=== PATIENT | female | born 1970 | race Caucasian/White ===

== ENCOUNTER → 2016-08-21 | Outpatient (CLI) | payer OTHER ==
[~2016-08-21] MED LIST: ALLO100T PO; ASPI-983 PO; BPR150TCR PO; CARV6.25 PO; CHOL200059 PO; CYANOCOBALAMIN; CYCL10TA9 PO; CYMBALTA 30 MG PO; DULO30CA3 PO; DULO60CA6 PO; ESTR1PAT81 TD; ESTR1PAT92 TD; FENO134C PO; FLUC100T6 PO; FLUCONAZOLE 100 MG PO; GEMF600T PO; GEMFIBROZIL 600 MG PO; INSU100V6 SQ; LIRA0.6P SQ; METF-380 PO; METF1000 PO; METFORMIN 1000MG PO; METO-270 PO; METO-272 PO; METOPROLOL ER 25MG PO; MTF500T PO; MULT-55 PO; NAPH15DR8 OU; NAPR-243 PO; NATURE THROID PO; NPPH15OP OU; PIOG30TA25 PO; ROPI0.25 PO; TESTOSTERONE; THROID PO; THYR130T5 PO; TOPI25TA2 PO; TRAM50TA2 PO; TRAMADOL 50MG PO; VITAMIN D3 PO
--- OUTSIDE RECORDS SUMMARY | 2016-08-21 15:06 | XMS REPORT | Continuity of Care Document ---
Author Author [facility] Organization [facility] Address Unknown Phone Unavailable Care Team Providers Care Disaster Response Director Name Role Phone Jai Moraia PCP [phone] Source Comments Some departments are not documenting in the electronic medical record. If you do not see the information that you expected, contact Release of Information in the Health Information Management department at [phone] for further assistance in locating additional records.[facility] Active Allergies and Adverse Reactions Allergen Noted Date Severity Reactions Comments Contrast Dye Iv, Iodine 12/15/2013 HIVES Containing Current Medications Prescription Sig. Disp. Refills Start End Date Status Date metFORMIN (GLUCOPHAGE) Take 500 mg by mouth Active 500 mg tablet twice daily with meals. metformin-ER(+) Take 1,000 mg by mouth Active (FORTAMET) 1,000 mg daily with dinner. tablet THYROID,PORK Take 2 mg by mouth daily Active (NATURE-THROID PO) before breakfast. buPROPion SR(+) Take 150 mg by mouth Active (WELLBUTRIN SR) 150 mg daily with dinner. tablet DULoxetine DR (CYMBALTA) Take 60 mg by mouth Active 60 mg capsule daily. estradiol (ESTRADIOL Apply 1 Patch to top of Active TRANSDERMAL PATCH) 0.05 skin as directed every 7 mg/24 hr patch days. fenofibrate micronized Take 160 mg by mouth Active (LOFIBRA) 134 mg capsule daily with dinner. insulin glargine (LANTUS Inject 30 Units into Active SOLOSTAR) 100 unit/mL (3 area(s) as directed at mL) injection PEN bedtime daily. liraglutide(+) (VICTOZA Inject 1.8 mg into Active 2-SHAYAN) 0.6 mg/0.1 mL (18 area(s) as directed mg/3 mL) pnij daily. metoprolol XL (TOPROL XL) Take 50 mg by mouth Active 50 mg tablet daily. bi-est Apply 1 g to affected Active 50/85-yfuypxzhlfxn-pzehyx area twice daily. *To terone 1.25-5-0.125 mg/g inner thigh or upper topical cream inner arm carvedilol (COREG) 12.5 Take 12.5 mg by mouth Active mg tablet daily. Take with food. losartan (COZAAR) 25 mg Take 25 mg by mouth Active tablet daily. coenzyme Q10(+) 100 mg Take 200 mg by mouth Active cap daily. omeprazole DR(+) Take 1 Cap by mouth daily 30 Cap 1 07/29/20 Active (PRILOSEC) 20 mg capsule before breakfast. 16 fluconazole (DIFLUCAN) 200 mg on day 1 followed 15 Tab 0 08/09/20 Active 100 mg tablet by 100 mg for 13 days. 16 Total of 14 day course. cyclobenzaprine Take 10 mg by mouth daily 08/06/20 Discontin (FLEXERIL) 10 mg tablet with dinner. 16 ued Active Problems Problem Noted Date Fibromyalgia 12/15/2013 DM (diabetes mellitus) (HCC) 12/15/2013 Hypothyroid 12/15/2013 HTN (hypertension) 12/15/2013 Hypercholesteremia 12/15/2013 Most Recent Encounters Date Type Specialty Providers Description 08/15/2016 Telephone Hepatology Sandra Agustin MD 08/14/2016 Telephone Hepatology Sandra Agustin MD 08/08/2016 Result Letter Gastroenterology Yuliana Sun, Jordan esophagitis (HCC) VAL (Primary Dx) 08/06/2016 [facility] Yuliana Sun, Dysphagia Encounter VAL 08/06/2016 Telephone Transplant Surgery Mushtaq Pereira, pc network technician 08/06/2016 Endo Rslt Enc Gastroenterology Franklin Loo MD 08/06/2016 Surgery Yuliana Sun, ESOPHAGOGASTRODUODENOSCOP VAL Y 08/05/2016 Anesthesia Riccardo Cruz CRNA Event 08/01/2016 Telephone Gastroenterology Yuliana Sun, Results VAL 07/29/2016 [facility] Yuliana Sun, Unspecified cirrhosis of Encounter VAL liver 07/29/2016 Hospital Radiology Yuliana Sun, Encounter VAL 07/29/2016 Office Visit Gastroenterology Yuliana Sun, Cirrhosis of liver VAL without ascites, unspecified hepatic cirrhosis type (HCC) (Primary Dx); Gastroesophageal reflux disease, esophagitis presence not specified 07/29/2016 Prep for Case GastroenterYuliana Ramires MBBS Social History Tobacco Use Types Packs/Day Years Used Date Never Smoker Alcohol Use Drinks/Week oz/Week Comments No Last Filed Vital Signs Vital Sign Reading Time Taken Blood Pressure 126/76 08/06/2016 9:07 AM TUTOR COORDINATOR Pulse 83 08/06/2016 9:07 AM TUTOR COORDINATOR Temperature 36.7 C (98.1 F) 08/06/2016 8:55 AM TUTOR COORDINATOR Respiratory Rate 14 12/15/2013 3:31 PM CDT Height 1.778 m (5' 10") 08/06/2016 8:01 AM TUTOR COORDINATOR Weight 105.688 kg (233 lb) 08/06/2016 8:01 AM TUTOR COORDINATOR Body Mass Index 33.43 08/06/2016 8:01 AM TUTOR COORDINATOR Oxygen Saturation 100% 08/06/2016 9:07 AM TUTOR COORDINATOR Plan of Care Date Type Specialty Providers Description 12/10/2016 Appointment Hepatology Sandra Agustin MD [address] [place] [address] [phone] (Fax) 12/16/2016 Appointment Gastroenterology Yuliana Sun MBBS [address] [place] [address] [phone] (Fax) Health Maintenance Due Date Last Done Comments Physical (Comprehensive) 1978 Exam Pertussis Vaccine 1982 Tetanus Vaccine 1988 Cervical Cancer Screening 1992 Breast Cancer Screening 2011 Influenza Vaccine 04/11/2016 Procedures from Last 3 Months Procedure Name Priority Date/Time Associated Diagnosis Comments TELEMETRY STRIPS-SCAN 08/07/2016 Results for this 12:17 PM TUTOR COORDINATOR procedure are in the results section. ESOPHAGOGASTRODUODENOSCOP 08/06/2016 Dysphagia Y BIOPSY 8:35 AM TUTOR COORDINATOR ESOPHAGOGASTRODUODENOSCOP 08/06/2016 Dysphagia Y 8:35 AM TUTOR COORDINATOR Results from Last 3 Months TELEMETRY STRIPS-SCAN (08/07/2016 12:17 PM) Narrative Ordered by an unspecified provider. NON-AUTO SLIP COVER INSTALLER CYTOLOGY (BODY FLUIDS/TISSUE) (08/06/2016 12:38 PM) Component Value Range Cytology [facility] [email or web address] Maddy Montenegro MD, Director Cytopathology Department of Pathology and Laboratory Medicine [address] [place] [id number] Office: [phone] CYTOLOGY REPORT NAME: HOWARD NEWBY CYTOLOGY #: [id number] MR #: [id number] ALT ID #: [id number] #: [id number] LOCATION: DATE OF PROCEDURE: 08/06/2016 12:38 AGE: 46 SEX: F DATE RECEIVED: 08/06/2016 : 1970 TIME RECEIVED: 12:38 PHYSICIAN: YULIANA SUN MD DATE OF REPORT: 08/07/2016 COPY TO: DATE OF PRINTIN08/07/2016 HISTORY: Date of Last Menstrual Period: None Given Menstrual History: None Given Contraceptive History: None Given Cancer History: None Given Infection History: None Given Treatment History: None Given Other Clinical Conditions: None Given CLINICAL DIAGNOSIS: 46 year old woman with history of GERD. MATERIAL RECEIVED: A: Esophageal Brushing ################################################## ###################### Final Diagnosis: A. Esophageal Brushing: Negative for malignant cells. Fungal organisms compatible with jordan are noted. Attestation: By this signature, I attest that I have personally formulated the final interpretation expressed in this report and that the above diagnosis is based upon my examination of the slides and/or other material indicated in this report. af/08/07/2016 +++Electronically Signed Out By Cynthia Reyes MD PhD, Attending Physician+++ Cervical cytology is a SCREENING TEST primarily for detecting cancers and precancerous lesions. This screening test has a well documented false negative rate. Your patient's pap test results should be interpreted in conjunction with history and clinical findings. Reported using [employer] terminology. ################################################## ###################### SURGICAL PATHOLOGY (08/06/2016 9:36 AM) Component Value Range PATHOLOGY REPORT [facility] [email or web address] Maddy Montenegro MD, PhD, Director of Anatomic Pathology Department of Pathology and Laboratory Medicine [address] [place] [phone] Surgical Pathology Office: [phone] SURGICAL PATHOLOGY REPORT NAME: HOWARD NEWBY SURG PATH #: [id number] MR #: [id number] SPECIMEN CLASS: SR BILLING #: [id number] ALT ID #: LOCATION: [facility] DATE OF PROCEDURE: 08/06/2016 AGE: 46 SEX: F DATE RECEIVED: 08/06/2016 : 1970 TIME RECEIVED: 09:36 PHYSICIAN: YULIANA SUN MD DATE OF REPORT: 08/08/2016 COPY TO: DATE OF PRINTIN08/08/2016 ################################################## ###################### Final Diagnosis: A. Squamous mucosa, "distal esophageal", biopsy: Mild nonspecific acute and chronic inflammation. GMS stain is negative for fungal organisms. B. Squamous mucosa, "proximal esophageal", biopsy: Mild nonspecific acute and chronic inflammation. GMS stain is negative for fungal organisms. Attestation: By this signature, I attest that I have personally formulated the final interpretation expressed in this report and that the above diagnosis is based upon my examination of the slides and/or other material indicated in this report. +++Electronically Signed Out By+++ [facility]/08/06/2016 Interpreted by: Tavon Clark MD, Attending Physician Phill Moreno MD Resident 08/08/2016 ################################################## ###################### Material Received: A: distal esophageal biopsy B: proximal esophageal biopsy History: 46-year-old female with a history of dysphagia. Gross Description: A. Received in formalin labeled "distal esophageal BX" is a 0.3 x 0.1 x 0.1 cm aggregate of miguel-brown soft tissue fragments. The specimen is entirely submitted in cassette A1. (tn) B. Received in formalin labeled "proximal esophageal BX" is a 0.4 x 0.1 x 0.1 cm aggregate of miguel-brown soft tissue fragments. The specimen is entirely submitted in cassette B1. (tn) /08/06/2016 Phill Moreno MD Resident EGD (08/06/2016 8:33 AM) Component Value Range Provation Report Patient Name: Odin Lawrence Procedure Date: 08/06/2016 8:33 AM CSN: [id number] Date of : 1970 Gender: Female Attending Physician: Yuliana Sun MD Procedure: Upper GI endoscopy Indications: Dy sphagia, Esophageal reflux, Possible esophageal varices seen on EGD in 2013. Providers: Yuliana Sun MD (Doctor), Reid Hart (Fellow), Eboni Banegas (Nurse), Tim Melendez, Superintendent Laundry (Superintendent Laundry) Referring Physician: Franklin Loo MD Medications: Mo nitored Anesthesia Care Complications: No immediate complications. Procedure: Pre-Anesthesia Assessment: - Prior to the procedure, a History and Physical was performed, and patient medications and allergies were reviewed. The patient's tolerance of previous anesthesia was also reviewed. The risks and benefits of the procedure and the sedation options and risks were discussed with the patient. All questions were answered, and informed consent was obtained. Prior Anticoagulants: The patient has taken no previous anticoagulant or antiplatelet agents. ASA Grade Assessment: II - A patient with mild systemic disease. After reviewing the risks and benefits, the patient was deemed in satisfactory condition to undergo the procedure. After obtaining informed consent, the endoscope was passed under direct vision. Throughout the procedure, the patient's blood pressure, pulse, and oxygen saturations were monitored continuously. The Endoscope was introduced through the mouth, and advanced to the second part of duodenum. The upper GI endoscopy was accomplished without difficulty. The patient tolerated the procedure well. Findings: Esophagogastric landmarks were identified: the gastroesophageal junction was found at 38 cm from the incisors. LA Grade B (one or more mucosal breaks greater than 5 mm, not extending between the tops of two mucosal folds) esophagitis with no bleeding was found at the gastroesophageal junction. There is no endoscopic evidence of varices in the lower third of the esophagus. Biopsies were obtained from the proximal and distal esophagus with cold forceps for histology of suspected eosinophilic esophagitis. White plaques were seen covering the lower third of esophagus. Brushings were taken to rule out jordan. The entire examined stomach was normal. A small, 2 cm sliding hernia was present. The examined duodenum was normal. Impression: - Esophagogastric landmarks identified. - LA Grade B reflux esophagitis. - Esophageal mucosal changes suspicious for eosinophilic esophagitis. White plaques were seen covering the lower third of esophagus. Brushings were taken to rule out jordan. Biopsied. - Normal stomach. A small, 2 cm sliding hernia was present. - Normal examined duodenum. Estimated Blood Loss: Estimated blood loss: none. Recommendation: - Patient has a contact number available for emergencies. The signs and symptoms of potential delayed complications were discussed with the patient. Return to normal activities tomorrow. Written discharge instructions were provided to the patient. - Resume previous diet. - Continue present medications. - Await pathology results. - Return to referring physician. - Follow an antireflux regimen daily. Scope In: 8:40:00 AM Scope Out: 8:50:42 AM Total Procedure Duration Time 0 hours 10 minutes 42 seconds Procedure Code(s): --- Professional --- 81096, Esophagogastroduodenoscopy, flexible, transoral; with biopsy, single or multiple Diagnosis Code(s): --- Professional --- K21.0, Gastro-esophageal reflux disease with esophagitis R13.10, Dysphagia, unspecified CPT copyright 2015 [employer]. All rights reserved. The codes documented in this report are preliminary and upon bolt machine operator review may be revised to meet current compliance requirements. Attending Participation: I was present and participated during the entire procedure, including non-barlow portions. MD Yuliana Bradley MD 08/06/2016 9:04:03 AM The attending physician has electronically signed and finalized this document. Reid Hart, Number of Addenda: 0 Note Initiated On: 08/06/2016 8:33 AM POC GLUCOSE (08/06/2016 7:52 AM) Component Value Range Glucose, POC 285 (H) 70-100 MG/DL COMPREHENSIVE METABOLIC PANEL (07/29/2016 5:40 PM) Component Value Range Sodium 134 (L) 137-147 MMOL/L Potassium 3.8 3.5-5.1 MMOL/L Chloride 96 (L) 98-110 MMOL/L Glucose 305 (H) 70-100 MG/DL Blood Urea Nitrogen 14 7-25 MG/DL Creatinine 0.91 0.4-1.00 MG/DL Calcium 9.8 8.5-10.6 MG/DL Total Protein 7.5 6.0-8.0 G/DL Total Bilirubin 0.3 0.3-1.2 MG/DL Albumin 4.4 3.5-5.0 G/DL Alk Phosphatase 45 25-110 U/L AST (SGOT) 14 7-40 U/L CO2 28 21-30 MMOL/L ALT (SGPT) 19 7-56 U/L Anion Gap 10 3-12 eGFR Non >60Comment: >60 mL/min The eGFR is not validated for use in drug dosing adjustments. Continue to use estimated creatinine clearance per dosing reference text. Please contact the Clinical Pharmacist for questions. eGFR >60Comment: >60 mL/min The eGFR is not validated for use in drug dosing adjustments. Continue to use estimated creatinine clearance per dosing reference text. Please contact the Clinical Pharmacist for questions. Specimen Blood CBC AND DIFF (07/29/2016 5:40 PM) Component Value Range White Blood Cells 9.2 4.5-11.0 K/UL RBC 4.49 4.0-5.0 M/UL Hemoglobin 13.1 12.0-15.0 GM/DL Hematocrit 39.8 36-45 % MCV 88.5 80-100 FL MCH 29.3 26-34 PG MCHC 33.1 32.0-36.0 G/DL RDW 13.6 11-15 % Platelet Count 385 150-400 K/UL MPV 8.1 7-11 FL Neutrophils 53 41-77 % Lymphocytes 39 24-44 % Monocytes 5 4-12 % Eosinophils 3 0-5 % Basophils 0 0-2 % Absolute Neutrophil Count 4.90 1.8-7.0 K/UL Absolute Lymph Count 3.60 1.0-4.8 K/UL Absolute Monocyte Count 0.50 0-0.80 K/UL Absolute Eosinophil Count 0.30 0-0.45 K/UL Absolute Basophil Count 0.00 0-0.20 K/UL Specimen Blood US ABDOMEN COMPLETE (07/29/2016 5:26 PM) Impressions Mildly heterogeneous liver without focal lesion. Approved by Alex Taylor M.D. on 07/30/2016 10:08 AM By my electronic signature, I attest that I have personally reviewed the images for this examination and formulated the interpretations and opinions expressed in this report Finalized by Julio Link M.D. on 07/30/2016 6:14 PM. Dictated by Alex Taylor M.D. on 07/30/2016 7:55 AM. Narrative Complete abdominal ultrasound: Clinical Indication: Cirrhosis, unspecified hepatic cirrhosis, diabetes, fibromyalgia, hypertension Technique: Multiple real-time grayscale sonographic images were obtained of the abdomen. Additional color Doppler images were obtained. Findings: The gallbladder is normal in size and configuration. The common duct measures 0.4 cm. The liver is mildly heterogeneous and measures 16.2 cm in length. No focal lesions identified. The visualized pancreas is unremarkable. The right kidney measures 4.5 x 5.9 cm. The left kidney measures 11.4 x 6.1 cm. No hydronephrosis or nephrolithiasis is identified. The urinary bladder is unremarkable. The spleen measures 12.4 cm without focal lesions. No abdominal or pelvic ascites is identified. The visualized aorta is unremarkable.The visualized portion of the upper IVC is unremarkable. Procedure Note Interface, Radiant Results - Tue Jul 30, 2016 6:17 PM TUTOR COORDINATOR Complete abdominal ultrasound: Clinical Indication: Cirrhosis, unspecified hepatic cirrhosis, diabetes, fibromyalgia, hypertension Technique: Multiple real-time grayscale sonographic images were obtained of the abdomen. Additional color Doppler images were obtained. Findings: The gallbladder is normal in size and configuration. The common duct measures 0.4 cm. The liver is mildly heterogeneous and measures 16.2 cm in length. No focal lesions identified. The visualized pancreas is unremarkable. The right kidney measures 4.5 x 5.9 cm. The left kidney measures 11.4 x 6.1 cm. No hydronephrosis or nephrolithiasis is identified. The urinary bladder is unremarkable. The spleen measures 12.4 cm without focal lesions. No abdominal or pelvic ascites is identified. The visualized aorta is unremarkable. The visualized portion of the upper IVC is unremarkable. IMPRESSION Mildly heterogeneous liver without focal lesion. Approved by Alex Taylor M.D. on 07/30/2016 10:08 AM By my electronic signature, I attest that I have personally reviewed the images for this examination and formulated the interpretations and opinions expressed in this report Finalized by Julio Link M.D. on 07/30/2016 6:14 PM. Dictated by Alex Taylor M.D. on 07/30/2016 7:55 AM.
--- NOTE | 2016-08-22 08:41 | ECHOCARDIOGRAPHY REPORT ---
PROCEDURE PHYSICIAN: PARUL COLE DATE OF PROCEDURE: 08/21/2016 TWO DIMENSIONAL ECHOCARDIOGRAM REPORT PRIMARY PHYSICIAN: OTHER PHYSICIAN: REFERRING PHYSICIAN: Dr. Mora ORDERING PHYSICIAN: INDICATION FOR THE PROCEDURE: Bundle branch block. MEASUREMENTS DERIVED VALUES LV DIAMETER (LAX) NORMALS NORMALS Diastolic 5.2 (3.6-5.2) Eject. Fract. 45% (60%+/-6%) Systolic (2.3-3.9) Diastolic Vol. % Shortening (0.22-0.42) Systolic Vol. Aortic Root IVS THICKNESS Diastolic 1 (0.6-1.1) LVPW THICKNESS Diastolic 1 (0.6-1.1) LA DIAMETER Systolic 4.4 (2.1-3.7) FINDINGS: 1. Technical quality is good. 2. The left ventricle is normal in size with hypokinesia involving the anterior wall, anterior septum. Systolic function is reduced. Estimated ejection fraction 45%. 3. The left atrium is mildly dilated. No clot or thrombus were seen within the left atrium. 4. The right atrium and right ventricle are normal in size. No clot or thrombus were seen within the right side. 5. Mitral valve is normal in morphology with mild mitral regurgitation noted by color Doppler flow. No mitral valve prolapse. No mitral valve stenosis. 6. Aortic valve is trileaflet with normal opening and closing pattern. No significant aortic stenosis or regurgitation was seen. 7. Tricuspid valve is normal in morphology with mild tricuspid regurgitation noted by color Doppler flow. Doppler across tricuspid valve estimated pulmonary artery pressure of 22+ right atrial pressure. 8. Pulmonic valve is functioning normally. 9. No pericardial effusion. IN CONCLUSION: 1. Normal left ventricular size with hypokinesia involving the anterior wall, anterior septum. Systolic function is mildly reduced. Estimated ejection fraction 45%. No change compared to the study of 2016. 2. Mildly dilated left atrium. 3. Mild mitral and tricuspid regurgitation. 4. Estimated pulmonary artery pressure of 30 mmHg. Job ID: [id number] Dictated Date: 08/21/2016 15:56:28 Intelligence Applications Date: 08/22/2016 08:38:10 / hi
== END ==
LOC: CARD 15:02
PROVIDERS: ATTEND Physician Assistant
DX: I44.7 Left bundle-branch block, unspecified (principal); I50.22 Chronic systolic (congestive) heart failure; E78.2 Mixed hyperlipidemia; I10 Essential (primary) hypertension
CPT/HCPCS: 93306

== ENCOUNTER → 2016-09-26 | Outpatient (CLI) | payer OTHER ==
--- OUTSIDE RECORDS SUMMARY | 2016-09-26 10:52 | XMS REPORT | Continuity of Care Document ---
Author Author [facility] Organization [facility] Address Unknown Phone Unavailable Care Team Providers Care Egg Worker Name Role Phone Jai Moraia PCP [phone] Source Comments Some departments are not documenting in the electronic medical record. If you do not see the information that you expected, contact Release of Information in the Health Information Management department at [phone] for further assistance in locating additional records.[facility] Active Allergies and Adverse Reactions Allergen Noted [...] bi-est Apply 1 g to affected Active 50/49-chqnweviwkux-aylxgl area twice daily. *To terone 1.25-5-0.125 mg/g [...] days. 16 Total of 14 day course. Active Problems Problem Noted Date Fibromyalgia 12/15/2013 DM (diabetes mellitus) (HCC) 12/15/2013 Hypothyroid 12/15/2013 HTN (hypertension) 12/15/2013 Hypercholesteremia 12/15/2013 Most Recent Encounters Date Type Specialty Providers Description 09/24/2016 Refill Gastroenterology Yuliana Sun, Gastroesophageal reflux MBBS disease, esophagitis presence not specified (Primary Dx) 08/15/2016 Telephone Hepatology Sandra Agustin MD 08/14/2016 Telephone Hepatology Sandra Agustin MD 08/08/2016 Result Letter Gastroenterology Yuliana Sun, Jordan esophagitis (HCC) VAL (Primary Dx) [facility] MBIRWIN 08/06/2016 Telephone Transplant Surgery Mushtaq Pereira, production coordinator 08/06/2016 Endo Rslt Enc Gastroenterology Franklin Loo MD 08/06/2016 Surgery Yuliana Sun, ESOPHAGOGASTRODUODENOSCOP MBBS Y 08/05/2016 Anesthesia Riccardo Cruz CRNA Event 08/01/2016 Telephone Gastroenterology Yuliana Sun, Results MBBS 07/29/2016 [facility] Yuliana Sun, Unspecified cirrhosis of Encounter MBIRWIN liver (HCC) 07/29/2016 [facility] 07/29/2016 Office Visit Gastroenterology Yuliana Sun, Cirrhosis of liver VAL without ascites, unspecified hepatic cirrhosis type (HCC) (Primary Dx); Gastroesophageal reflux disease, esophagitis presence not specified 07/29/2016 Prep for Case Gastroenterology Yuliana Sun MBBS Social History Tobacco Use Types Packs/Day Years Used Date Never Smoker Alcohol Use Drinks/Week oz/Week Comments No Last Filed Vital Signs Vital Sign Reading Time Taken Blood Pressure 126/76 08/06/2016 9:07 AM CLINIC LICENSED PRACTICAL NURSE Pulse 83 08/06/2016 9:07 AM CLINIC LICENSED PRACTICAL NURSE Temperature 36.7 C (98.1 F) 08/06/2016 8:55 AM CLINIC LICENSED PRACTICAL NURSE Respiratory Rate 14 12/15/2013 3:31 PM CDT Height 1.778 m (5' 10") 08/06/2016 8:01 AM CLINIC LICENSED PRACTICAL NURSE Weight 105.688 kg (233 lb) 08/06/2016 8:01 AM CLINIC LICENSED PRACTICAL NURSE Body Mass Index 33.43 08/06/2016 8:01 AM CLINIC LICENSED PRACTICAL NURSE Oxygen Saturation 100% 08/06/2016 9:07 AM CLINIC LICENSED PRACTICAL NURSE Plan of Care Date Type Specialty Providers Description 12/10/2016 Appointment Hepatology Sandra Agustin MD [address] [place] [address] [phone] (Fax) 12/16/2016 Appointment Gastroenterology Yuliana Sun MBBS [address] [place] [address] [phone] (Fax) Health Maintenance Due Date Last Done Comments Physical (Comprehensive) 1978 Exam Pertussis Vaccine 1982 Tetanus Vaccine 1988 Cervical Cancer Screening 1992 Breast Cancer Screening 2011 Influenza Vaccine 04/11/2016 Procedures from Last 3 Months Procedure Name Priority Date/Time Associated Diagnosis Comments TELEMETRY STRIPS-SCAN 08/07/2016 Results for this 12:17 PM CLINIC LICENSED PRACTICAL NURSE procedure are in the results section. ESOPHAGOGASTRODUODENOSCOP 08/06/2016 Dysphagia Y BIOPSY 8:35 AM CLINIC LICENSED PRACTICAL NURSE ESOPHAGOGASTRODUODENOSCOP 08/06/2016 Dysphagia Y 8:35 AM CLINIC LICENSED PRACTICAL NURSE Results from Last 3 Months TELEMETRY STRIPS-SCAN (08/07/2016 12:17 PM) Narrative Ordered by an unspecified provider. NON-CATALOG SPECIALIST CYTOLOGY (BODY FLUIDS/TISSUE) (08/06/2016 12:38 PM) Component Value Range Cytology [facility] [email or web address] Maddy Montenegro MD, Director Cytopathology Department of Pathology and Laboratory Medicine [address] [place] [id number] Office: [phone] CYTOLOGY REPORT NAME: HOWARD NEWBY CYTOLOGY #: [id number] MR #: [id number] ALT ID #: BILLING #: [id number] LOCATION: DATE OF PROCEDURE: 08/06/2016 12:38 AGE: [...] with history and clinical findings. Reported using [place] [employer] terminology. ################################################## ###################### SURGICAL PATHOLOGY (08/06/2016 9:36 AM) Component Value Range PATHOLOGY REPORT [facility] [email or web address] Maddy Montenegro MD, PhD, Director of Anatomic Pathology Department of Pathology and Laboratory Medicine [address] [place] [id number] Surgical Pathology Office: [phone] SURGICAL PATHOLOGY REPORT NAME: HOWARD NEWBY SURG PATH #: [id number] MR #: [id number] SPECIMEN CLASS: SR BILLING #: [id number] ALT ID #: LOCATION: [facility] DATE OF PROCEDURE: 08/06/2016 AGE: 46 SEX: [...] in this report. +++Electronically Signed Out By+++ [facility]/08/06/2016 Interpreted by: Tavon Clark MD, Attending Physician [...] Lawrence Procedure Date: 08/06/2016 8:33 AM CSN: [id number] Date of : 1970 Gender: Female Attending Physician: Yuliana Sun MD Procedure: Upper GI endoscopy Indications: Dy sphagia, Esophageal reflux, Possible esophageal varices seen on EGD in 2013. Providers: Yuliana Sun MD (Doctor), Reid Hart (Fellow), Eboni Banegas (Nurse), Tim Melendez, C Python Developer (C Python Developer) Referring Physician: Franklin Loo MD Medications: Mo [...] 42 seconds Procedure Code(s): --- Professional --- 80125, Esophagogastroduodenoscopy, flexible, transoral; with biopsy, single or multiple Diagnosis Code(s): --- Professional --- K21.0, Gastro-esophageal reflux disease with esophagitis R13.10, Dysphagia, unspecified CPT copyright 2015 [employer]. All rights reserved. The codes documented in this report are preliminary and upon airplane pilot helper review may be revised to meet current [...] - Tue Jul 30, 2016 6:17 PM CLINIC LICENSED PRACTICAL NURSE Complete abdominal ultrasound: Clinical Indication: Cirrhosis, unspecified [...]
--- NOTE | 2016-09-26 14:25 | Diagnostic Imaging Report ---
CLINICAL INDICATION: Followup thyroid nodule. COMPARISONS: Thyroid ultrasound dated 03/16/2015. FINDINGS: THYROID NODULES: There is a hypoechoic nodule within the medial midportion of the right thyroid gland which currently measures 5 mm x 3 mm x 5 mm. This nodule is stable and previously measured 5 mm x 3 mm x 5 mm. These nodules demonstrate no significant doppler flow. THYROID GLAND: Besides the thyroid nodule, the thyroid gland has normal size, shape and echogenicity. The right lobe measures 4.3 cm x 1.4 cm x 1.4 cm and the left lobe measures 4.5 cm x 1.1 cm x 1.4 cm in their three dimensions. ISTHMUS: The isthmus is unremarkable and measures roughly 2 mm in thickness. IMPRESSION: Stable 5 mm nodule in the right thyroid gland. Otherwise, unremarkable thyroid ultrasound exam. Dictated by: Dictated on workstation # [id number]
== END ==
LOC: RAD 10:48
PROVIDERS: ATTEND Nurse Practitioner Family
DX: E04.1 Nontoxic single thyroid nodule (principal)
CPT/HCPCS: 76536

== ENCOUNTER 2017-03-15 21:00 | Outpatient (CLI) | payer BC, OTHER | END 2017-03-16 06:45 | disposition home or self-care (01) | LOC: SLEEP 21:00 | PROVIDERS: ATTEND Internal Medicine Critical Care Medicine | DX: G47.33 Obstructive sleep apnea (adult) (pediatric) (principal); I50.1 Left ventricular failure, unspecified | CPT/HCPCS: 95810 ==

== ENCOUNTER → 2018-02-16 | Outpatient (CLI) | payer BC ==
[~2018-02-16] MED LIST changes: -METF1000 PO; +METF10002 PO; -METO-270 PO; +METO-387 PO
== END ==
LOC: RAD 10:12
PROVIDERS: ATTEND Internal Medicine Cardiovascular Disease
DX: R07.9 Chest pain, unspecified (principal); I10 Essential (primary) hypertension; E78.2 Mixed hyperlipidemia; E11.9 Type 2 diabetes mellitus without complications
CPT/HCPCS: 93306

== ENCOUNTER → 2018-06-26 | Outpatient (CLI) | payer BC ==
[~2018-06-26] MED LIST changes: +METF-399 PO; -METF10002 PO
--- NOTE | 2018-06-26 19:34 | Diagnostic Imaging Report ---
PROCEDURE: US Thyroid. TECHNIQUE: Multiple real-time grayscale images were obtained of the thyroid in various projections. INDICATION: Thyroid nodule. COMPARISON: 09/26/2016, 01/15/2013. FINDINGS: The right thyroid lobe measures 4.7 x 1.5 x 1.5 cm. There is a hypoechoic circumscribed nodule in the inferior right thyroid lobe which is mildly heterogeneous. This measures 5 x 5 x 4 mm in size. There is internal vascularity. This is unchanged since the prior exam. Vascularity and echogenicity of the right thyroid lobe appears normal. The isthmus measures 2 mm in thickness and appears normal. The left thyroid lobe measures 4.0 x 1.5 x 1.1 cm. There is normal echogenicity and vascularity. No nodules are seen. IMPRESSION: 1. 5 mm right thyroid nodule, appears unchanged compared to 2013. No new nodules are seen. Dictated by: Dictated on workstation # [id number]
== END ==
LOC: RAD 16:02
PROVIDERS: ATTEND Nurse Practitioner Family
DX: E04.1 Nontoxic single thyroid nodule (principal)
CPT/HCPCS: 76536

== ENCOUNTER → 2018-06-30 | Outpatient (CLI) | payer BC ==
[~2018-06-30] MED LIST changes: +CATHETER FLUSH 10 ML SYR IV PRN; +HEParin (CENTRAL IV FLUSH) 500 UNIT/5 ML SYR ONE
== END ==
LOC: CARD 13:55
PROVIDERS: ATTEND Internal Medicine Cardiovascular Disease
DX: I44.7 Left bundle-branch block, unspecified (principal); I11.0 Hypertensive heart disease with heart failure; I50.1 Left ventricular failure, unspecified; R07.9 Chest pain, unspecified; E11.9 Type 2 diabetes mellitus without complications; I50.22 Chronic systolic (congestive) heart failure; E78.2 Mixed hyperlipidemia
CPT/HCPCS: 78472

== ENCOUNTER → 2018-07-13 | Outpatient (CLI) | payer BC ==
[~2018-07-13] MED LIST changes: -CATHETER FLUSH 10 ML SYR IV PRN; -HEParin (CENTRAL IV FLUSH) 500 UNIT/5 ML SYR ONE
--- NOTE | 2018-07-14 20:09 | Diagnostic Imaging Report ---
INDICATION: Routine screening. Comparison is made with prior mammograms from 07/12/2015 and 01/15/2013. 2-D and 3-D bilateral screening mammography was performed with computer-aided detection (CAD) system. FINDINGS: Scattered fibroglandular densities are identified bilaterally. Benign-appearing nodular densities in the outer left breast appear stable. No new mass or malignant-appearing microcalcifications are seen. The axillae are unremarkable. IMPRESSION: No mammographic features suspicious for malignancy are identified. ACR BI-RADS Category 2: Benign findings. Result letter will be mailed to the patient. Note: At least 10% of breast cancer is not imaged by mammography. Dictated by: Dictated on workstation # [id number]
== END ==
LOC: RAD 15:37
PROVIDERS: ATTEND Nurse Practitioner Family
DX: Z12.31 Encounter for screening mammogram for malignant neoplasm of breast (principal)
CPT/HCPCS: 77067

== ENCOUNTER 2019-05-14 06:34 | Outpatient (CLI) | payer BC ==
[2019-05-14] VITALS (10 sets, daily range): BP systolic 118–153; BP diastolic 80–100
[~2019-05-14] VITALS: Ht 157 cm; Wt 91.0 kg
[~2019-05-14 06:34] MED LIST changes: +NAPH15DR14 OU; -NAPH15DR8 OU
[2019-05-14] MEDS ORDERED: CATHETER FLUSH 10 ML SYR IV PRN (07:00)
[2019-05-14] MEDS ORDERED: REGADENOSON 0.4 MG/5 ML SYR (LEXISCAN) IV ONE ×2 (08:15→08:17)
[2019-05-14] MEDS ORDERED: LIDOCAINE 1% INJ 20 ML 20 ML VIAL ONE (09:52)
[2019-05-14] MEDS ORDERED: NS IV 1000 ML 1,000 ML ONE (09:52)
[2019-05-14] MEDS ORDERED: HEParin (CATH LAB) 2,000 ML IV ONE (09:53)
[2019-05-14] MEDS ORDERED: NS IV 1000 ML 1,000 ML IV SCH ×2 (10:00→14:57)
[2019-05-14 10:17] LABS: HEMOGLOBIN 11.7 G/DL (11.5-16.0); RED CELL DISTRIBUTION WIDTH 13.6 % (10.0-14.5); WHITE BLOOD COUNT 6.8 10^3/uL (4.3-11.0)
[2019-05-14] MEDS ORDERED: BUPR150T7 PO (10:20)
[2019-05-14] MEDS ORDERED: DULO60CA59 PO (10:21)
[2019-05-14] MEDS ORDERED: ATOR10TA PO (10:21)
[2019-05-14] MEDS ORDERED: LEVO150T6 PO (10:21)
[2019-05-14] MEDS ORDERED: LOSA50TA63 PO (10:21)
[2019-05-14] MEDS ORDERED: FENO160T12 PO (10:21)
[2019-05-14] MEDS ORDERED: CARV12.52 PO (10:21)
[2019-05-14] MEDS ORDERED: ATOM80CA PO (10:21)
[2019-05-14 10:24] LABS: PROTHROMBIN TIME PATIENT 13.5 SEC (12.2-14.7)
[2019-05-14] MEDS ORDERED: MULT1TAB69 PO (10:28)
[2019-05-14] MEDS ORDERED: OMEP20CA13 PO (10:28)
[2019-05-14] MEDS ORDERED: LIRA0.6P3 SQ (10:28)
[2019-05-14] MEDS ORDERED: OMEG-179 PO (10:29)
[2019-05-14 10:32] LABS: BILIRUBIN,TOTAL 0.3 MG/DL (0.1-1.0); CALCIUM 9.2 MG/DL (8.5-10.1); CREATININE SERUM 1.02 MG/DL (0.60-1.30); TOTAL PROTEIN 6.7 GM/DL (6.4-8.2)
[2019-05-14] MEDS ORDERED: INSU100I32 SQ (10:40)
--- NOTE | 2019-05-14 10:44 | Diagnostic Imaging Report ---
INDICATION: ABN STRESS COMPARISON: 07/23/2013 FINDINGS: Single frontal view of the chest demonstrates normal heart size and pulmonary vascularity. The lungs are well aerated and clear. No large pleural effusion or pneumothorax is seen. The visualized osseous structures show no acute abnormalities. IMPRESSION: 1. No acute cardiopulmonary process. Dictated by: Dictated on workstation # [id number]
--- NOTE | 2019-05-14 12:57 | NUR ---
SPOKE WITH PT WELL CONTACTING [facility] TO COMPLETE THE MED REC. PT WAS ABLE TO TELL ME ALL HER MEDS AND HOW SHE IS TAKING/USING THEM THE FOLLOWING ARE FILL DATES(DATE IT WAS SENT OUT) FROM [facility] ORDER: 03-26-2019 LEVOTHYROXINE #90/90DS 03-26-2019 METFORMIN #180/90DS 03-26-2019 METFORMIN #180/90DS 03-29-2019 ATOMOXETINE #90/90DS 04-05-2019 BUPROPION #180/90DS 04-07-2019 TRESIBA 05-06-2016 VICTOZA 05-11-2019 ATORVASTATIN #90/90DS 05-11-2019 CARVEDILOL #180/90DS 05-11-2019 FENOFIBRATE #90/90DS 05-11-2019 LOSARTAN #90/90DS OTC MEDS: VIT D: 2 HS FISH OIL: 1 HS MULTIVITAMIN: 1 HS OMEPRAZOLE : 1 DAILY PRN [facility] SAID THEY HAVE NOT FILLED A HORMONE PATCH FOR HER. I CALLED HER LOCAL PHARMACY (BOTH [facility]) AND THEY HAD NOT FILLED IT EITHER. THE PT WAS ALREADY IN THE ROOM FOR THE PROCEDURE, IF I AM ABLE TO SPEAK TO HER I WILL UPDATE THE MED REC AND THESE NOTES ACCORDINGLY.
[2019-05-14] MEDS ORDERED: methylPREDNISolone 125 MG (Solu-MEDROL) VIAL ONE (13:02)
--- NOTE | 2019-05-14 14:10 | Cardiac Procedure Note-CS/ASA ---
Pre-Procedure Note Pre-Op Procedure Note H&P Reviewed The H&P was reviewed, patient examined and no changes noted. Date H&P Reviewed: May 14, 2019 Time H&P Reviewed: 14:10 Conscious Sedation Pre-Proced Time 14:10 ASA Score 3 For ASA 3 and 4: Consider anesthesia and medical clearance. Also, for patients with a history of failed moderate sedation consider anesthesia. Airway Lungs Heart ASA score ASA 1: a normal healthy patient ASA 2: a patient with a mild systemic disease (mid diabetes, controlled hypertension, obesity x ASA 3: a patient with a severe systemic disease that limits activity (angina, COPD, prior Myocardial infarction) ASA 4: a patient with an incapacitating disease that is a constant threat to life (CHF, renal failure) ASA 5: a moribund patient not expected to survive 24 hrs. (ruptured aneurysm) ASA 6: a declared brain- patient whose organs are being harvested. For emergent operations, add the letter E after the classification Mallampati Classification Grade 3 Sedation Plan Analgesia, Amnesia, Plan communicated to team members, Discussed options with patient/fam, Discussed risks with patient/fam The patient is an appropriate candidate to undergo the planned procedure, sedation, and anesthesia. The patient immediately re-assessed prior to indication. PARUL COLE MD May 14, 2019 14:10
[2019-05-14] MEDS ORDERED: D5 NS 1000 ML IV SOLUTION 1,000 ML IV SCH (14:15)
[2019-05-14] MEDS ORDERED: VERAPAMIL 5 MG/2 ML (CALAN) VIAL IV ONE (14:19)
[2019-05-14] MEDS ORDERED: MIDAZOLAM 5 MG/5 ML (VERSED) VIAL ONE (14:19)
[2019-05-14] MEDS ORDERED: fentaNYL INJECTION 100 MCG/2 ML AMP ONE (14:19)
[2019-05-14] MEDS ORDERED: HEParin 1000 UNIT/ML (10ML VIAL) FOR BOLUS ONE (14:20)
[2019-05-14] MEDS ORDERED: NITRO DRIP 25000 MCG/D5W 250 ML IV ONE (14:20)
[2019-05-14] MEDS ORDERED: diphenhydrAMINE 50 MG/ML INJ (BENADRYL) ONE (14:29)
--- NOTE | 2019-05-14 15:00 | Cardiac Cath Report ---
Cardiac Cath Report Physician (s)/Chemistry Instructor (s) Physician PARUL COLE MD Pre-Procedure Diagnosis Pre-Procedure Diagnosis: Chest pain Post-Procedure Note Procedure Start Date: May 14, 2019 Name of Procedure: Left heart catheterization Findings/Procedure Note PROCEDURE NOTE: 48 years old lady with history of left bundle branch block, has been having chest pain, noted to have an abnormal stress test today, had significant chest pain and dyspnea during lexiscan injection, received SL NTG, her SPECT images showed reversible ischemia involving the mid to apical anterior wall, discussed the need for cardiac catheterization, patient was fairly anxious and requested to have the procedure done today. After explaining the procedure to the patient, all pros and cons were explained, all questions were answered. The patient signed the consent and then she was placed on the cardiac catheterization laboratory. Groin was prepped SL fashion local anesthesia was used. Sheath placed in the right radial artery, Linch catheter was advanced to the left coronary system, angiogram was done then exchanged over a long J-wire into Shirley right catheter advanced to the left ventricular cavity, pressure was measured pullback LV to aorta was done then intubated the right coronary artery and angiogram was done. At the end of the procedure the sheath was removed. vascular band was used FINDINGS: Hemodynamics LV 140/23, end-diastolic pressure of 23 Aorta 140/100, mean of 78 ANATOMY: Left Main is free of obstructive disease Left Anterior Descending has mild disease at the midportion nonobstructive disease Left Circumflex has mild disease nonobstructive disease Right Coronory Artery has mild disease nonobstructive disease LV Gram was not done, pressure was measured CONCLUSION: 1. Mild coronary artery disease nonobstructive disease 2. Left ventricular end-diastolic pressure is mildly elevated DISCUSSION AND RECOMMENDATION: medical therapy is recommended no intervention is needed Anesthesia Type: Conscious Sedation Estimated blood loss (mL): 10 ml Contrast Amount: 40 ml Total Radiation Dose: 357 mGy Post-Procedure Diagnosis Post-operative diagnosis: Chest pain Coronary artery disease Left bundle branch block Shortness of breath PARUL COLE MD May 14, 2019 15:00
[2019-05-14] MEDS ORDERED: METF-399 PO (15:02)
--- NOTE | 2019-05-14 15:02 | Discharge Inst-Post CATH ---
Discharge Inst-CATH/EP Problems Reviewed?: Yes Post Cardiac Cath/EP D/C Inst Follow Up/Plan Hold metformin for [address] Godinez's office in 2-4 weeks <b>CARDIAC CATH/EP PROCEDURE DISCHARGE INSTRUCTIONS</b> ACTIVITY * Go Home directly and rest. * Limit activity of the leg (or wrist if it was used) for 7 days including aerobics, swimming, jogging, bicycling, etc. * Restrict stair-climbing for 7 days if possible, if not, climb up with your non-cath leg, then bring together on the same step. * Avoid lifting, pushing, pulling or excessive movement of the affected extremity for 7 days. * Customary sexual activity may be resumed after 2 days-use caution not to use a position that strains or causes pain to the affected extremity. * No driving for 24 hours. * NO SMOKING. * Avoid straining for bowel movements for 7 days. * Gentle walking on level ground is allowed. * Returning to work will depend on the type of procedure and the results. Your doctor will discuss this with you. CALL YOUR DOCTOR FOR ANY OF THE FOLLOWING: *If bleeding from the puncture site occurs- Apply gentle pressure to site with clean cloth and call your doctor or EMS. * If a knot or lump forms under the skin, increases in size, or causes pain. * If bruising appears to be worsening or moving further down your leg instead of disappearing. * Temperature above 101 F. CARE OF YOUR GROIN INCISION; * Bruising or purple discoloration of the skin near the puncture site is common. * You may shower only, no bathtub bathing for 5 days. Be careful to avoid sli pping as your leg may feel stiff. * If a closure device was used on your femoral artery, please see the attached guide regarding care of the device and your leg. * Leave dressing on FOR 24 hours. CARE OF YOUR WRIST INCISION; * Bruising or purple discoloration of the skin near the puncture site is common. * You may shower. * DO NOT submerge wrist. * Leave dressing on FOR 24 hours. PARUL GODINEZ MD May 14, 2019 15:02
--- NOTE | 2019-05-14 15:22 | NUR ---
PT TO FLOOR FROM HEART CATH -- REPORT HEART CATH RNS -- POST RADIAL HEART CATH -- R RADIAL --
--- NOTE | 2019-05-17 19:07 | STRESS TEST ---
DATE OF SERVICE: 05/14/2019 LEXISCAN MYOVIEW STRESS TEST REPORT REFERRING PHYSICIAN: Dr. Mora. Baseline heart rate is 88, baseline blood pressure 137/89. Baseline EKG is sinus rhythm with left bundle branch block. In summary, the patient received 10.98 mCi of technetium-99 Myoview and the resting images were obtained. Then, she received 0.4 mg of Lexiscan followed by 30.6 mCi of technetium-99 Myoview. During the test, the patient developed chest pain responded to sublingual nitroglycerin. No EKG changes were noted. The resting and stress images were reviewed and compared in the short axis, horizontal long axis, and vertical long axis views. Review of the images showed breast attenuation with mild reversible ischemia involving the mid to apical anterior wall and anteroseptum. SSS is 3, SDS 3, TID value 1.05. On the gated images, the left ventricle appeared to be normal size with normal contractility. Calculated ejection fraction 53%. CONCLUSION: 1. The patient developed chest pain with Lexiscan injection required sublingual nitroglycerin. 2. No EKG changes with baseline left bundle-branch block. 3. Mild ischemia with breast attenuation affecting the quality of the images, affecting the mid to apical anterior wall and anteroseptum. 4. Normal left ventricular size with good contractility. Calculated ejection fraction 53%. Job ID: [id number] DocumentID: [id number] Dictated Date: 05/17/2019 16:37:09 Bag Making Machine Operator Date: 05/17/2019 19:07:20 Dictated By: PARUL COLE MD
== END 2019-05-14 17:35 ==
LOC: CARD 06:34 → 4TH 15:25 → CATH 17:35
PROVIDERS: ATTEND Physician Assistant
DX: I34.0 Nonrheumatic mitral (valve) insufficiency (principal); I44.7 Left bundle-branch block, unspecified; E11.9 Type 2 diabetes mellitus without complications; I11.0 Hypertensive heart disease with heart failure; I50.9 Heart failure, unspecified; I25.89 Other forms of chronic ischemic heart disease
CPT/HCPCS: 36415; 71045; 78452; 80053; 80061; 82962; 85027; 85610; 85730; 87081; 93017; 93306; 93458

== ENCOUNTER → 2021-05-01 | Outpatient (CLI) | payer BC ==
[~2021-05-01] MED LIST changes: +ASPI-1238 PO; -ASPI-983 PO; +ATOM80CA PO; +ATOR10TA PO; +BUPR150T24 PO; +CARV12.52 PO; +DULO60CA59 PO; +FENO160T12 PO; +INSU100I32 SQ; +LEVO150T6 PO; +LIRA0.6P3 SQ; +LOSA50TA63 PO; -METO-387 PO; +MTP25TSR PO; +MULT-567 PO; +OMEG-179 PO; +OMEP20CA18 PO; -TRAM50TA2 PO; +TRM50T PO
== END ==
LOC: CARD 08:30
PROVIDERS: ATTEND Physician Assistant
DX: I11.9 Hypertensive heart disease without heart failure (principal); I25.10 Atherosclerotic heart disease of native coronary artery without angina pectoris
CPT/HCPCS: 93306

== ENCOUNTER 2022-09-15 03:51 | Emergency (ER) | payer BC ==
[~2022-09-15] VITALS: Ht 177.8 cm; Wt 81.6 kg
[~2022-09-15 03:51] MED LIST changes: +FENO134C21 PO; +FLUC100T10 PO; -FLUC100T6 PO
[2022-09-15] MEDS ORDERED: LACTATED RINGERS 1,000 ML IV ONE (04:15)
[2022-09-15] MEDS ORDERED: KETOROLAC 30 MG/ML VIAL IVP STA (04:39)
[2022-09-15 04:43] LABS: BASOPHILS # (AUTO) 0.1 10^3/uL (0.0-0.1); BASOPHILS % (AUTO) 1 % (0-10); EOSINOPHILS # (AUTO) 0.2 10^3/uL (0.0-0.3); EOSINOPHILS % (AUTO) 2 % (0-10); HEMATOCRIT 42 % (35-52); HEMOGLOBIN 13.7 g/dL (11.5-16.0); LYMPHOCYTES # (AUTO) 1.3 10^3/uL (1.0-4.0); LYMPHOCYTES % (AUTO) 11 % (12-44); MEAN CORPUSCULAR HEMOGLOBIN 30 pg (25-34); MEAN CORPUSCULAR HGB CONC 33 g/dL (32-36); MEAN CORPUSCULAR VOLUME 93 fL (80-99); MONOCYTES # (AUTO) 0.6 10^3/uL (0.0-1.0); MONOCYTES % (AUTO) 5 % (0-12); NEUTROPHILS # (AUTO) 9.4 10^3/uL (1.8-7.8); NEUTROPHILS % (AUTO) 81 % (42-75); PLATELET COUNT 384 10^3/uL (130-400); WHITE BLOOD COUNT 11.5 10^3/uL (4.3-11.0)
[2022-09-15] MEDS ORDERED: ONDANSETRON 4 MG/2 ML (SDV) Z0FRAN IVP ONE (04:45)
--- NOTE | 2022-09-15 04:46 | ED Abdominal Pain ---
General Chief Complaint: - Reproductive Stated Complaint: RIGHT FLANK/BACK/GROIN PAIN Source of Information: Patient (OCTAVIO,PORTILLO K ) History of Present Illness Date Seen by Provider: Sep 15, 2022 Time Seen by Provider: 04:25 Initial Comments PT ARRIVES VIA POV FROM HOME C/O RIGHT FLANK, RIGHT LOWER QUADRANT AND RIGHT GROIN PAIN SINCE 2100 TONIGHT PAIN IS CONSTANT, NOTHING WORSENS OR IMPROVES PAIN HAS INTERMITTENT NAUSEA, NO VOMITING NO PAIN ON URINATION, OR DISCOLORATION, BUT STATES IT JUST "TRICKLES" WHEN SHE URINATES NO FEVER HAS NOT TAKEN ANYTHING FOR PAIN NO HISTORY OF SIMILAR PT HAS HAD PRIOR HYSTERECTOMY/BILATERAL SALPINGO-OOPHORECTOMY WITH CYSTOCOELE AND RECTOCOELE REPAIR. NO OTHER ABDOMINAL SURGERIES NO PRIOR GI OR URINARY PROBLEMS PT IS INSULIN DEPENDENT DIABETIC, HAS HTN, CHF, AND HYPERLIPIDEMA PCP: DR. REA (PORTILLO CROFT DO) Allergies and Home Medications Allergies Coded Allergies: latex (Verified Allergy, Unknown, 05/14/19) Uncoded Allergies: contrast iv dye (Allergy, Intermediate, HIVES, 03/16/15) Patient Home Medication List Home Medication List Reviewed: Yes (MCKENNA PANIAGUA MD) Atomoxetine HCl (Strattera) 80 Mg Capsule, 80 MG PO HS, (Reported) Entered as Reported by: SABA KAUR on 05/14/19 1021 Atorvastatin Calcium (Lipitor) 10 Mg Tablet, 10 MG PO HS, (Reported) Entered as Reported by: SABA KAUR on 05/14/19 1021 Bupropion HCl (Bupropion Xl) 150 Mg Tab.er.24h, 150 MG PO BID, (Reported) Entered as Reported by: SABA KAUR on 05/14/19 1020 Carvedilol (Coreg) 12.5 Mg Tablet, 12.5 MG PO BID, (Reported) Entered as Reported by: SABA KAUR on 05/14/19 1021 Cholecalciferol (Vitamin D3) (Vitamin D-3) 2,000 Unit Tablet, 2,000 UNIT PO DAILY, (Reported) Entered as Reported by: ZAIN TORRES on 03/16/15 1316 Ciprofloxacin HCl (Ciprofloxacin HCl) 500 Mg Tablet, 500 MG PO BID Prescribed by: PORTILLO CROFT on 09/15/22 0700 Duloxetine HCl (Duloxetine HCl) 60 Mg Capsule.dr, 60 MG PO HS, (Reported) Entered as Reported by: SABA KAUR on 05/14/19 1021 Estradiol (Estradiol Patch Twice Weekly 0.025mg/hr) 1 Each Patch.tdsw, 0.05 MG TD WEEKLY ON , (Reported) Entered as Reported by: ZAIN TORRES on 03/16/15 1025 Fenofibrate (Fenofibrate) 160 Mg Tablet, 160 MG PO HS, (Reported) Entered as Reported by: SABA KAUR on 05/14/19 1021 Hydrocodone/Acetaminophen (Hydrocodone-Acetamin 5-325 mg) 5 Mg-325 Mg Tablet, 1 EACH PO Q4-6 HOURS PRN for PAIN Prescribed by: PORTILLO CROFT on 09/15/22 0700 Hydrocodone/Acetaminophen (Hydrocodone-Acetamin 5-325 mg) 5 Mg-325 Mg Tablet, 1 TAB PO Q6H PRN for PAIN-MODERATE (5-7) Prescribed by: MCKENNA PANIAGUA on 09/15/22 1725 Insulin Degludec (Tresiba Flextouch U-100) 100 Unit/1 Ml Insuln.pen, 25 UNIT SQ HS, (Reported) Entered as Reported by: SABA KAUR on 05/14/19 1040 Ketorolac Tromethamine (Ketorolac Tromethamine) 10 Mg Tablet, 10 MG PO Q6H Prescribed by: PORTILLO CROFT on 09/15/22 0700 Levothyroxine Sodium (Levothyroxine Sodium) 150 Mcg Tablet, 150 MCG PO DAILY, (Reported) Entered as Reported by: SABA KAUR on 05/14/19 1021 Liraglutide (Victoza 3-Lonnie) 0.6 Mg/0.1 Ml Pen.injctr, 1.8 MG SQ DAILY, (Reported) Entered as Reported by: SABA KAUR on 05/14/19 1028 Losartan Potassium (Losartan Potassium) 50 Mg Tablet, 50 MG PO HS, (Reported) Entered as Reported by: SABA KAUR on 05/14/19 1021 Metformin HCl (Metformin HCl) 1,000 Mg Tablet, 1,000 MG PO BID Prescribed by: PARUL COLE on 05/14/19 1502 Multivitamin (Multivitamins) 1 Each Tablet, 1 EACH PO DAILY, (Reported) Entered as Reported by: SABA KAUR on 05/14/19 1028 [place]-3S/Dha/Epa/Fish Oil (Fish Oil 1,200 mg Softgel) 1 Each Capsule, 1 EACH PO HS, (Reported) Entered as Reported by: SABA KAUR on 05/14/19 1029 Omeprazole (Omeprazole) 20 Mg Capsule.dr, 20 MG PO DAILY PRN for HEARTBURN, (Reported) Entered as Reported by: SABA KAUR on 05/14/19 1028 Ondansetron (Ondansetron Odt) 4 Mg Tab.rapdis, 4 MG PO Q4H Prescribed by: PORTILLO CROFT on 09/15/22 0700 Tamsulosin HCl (Flomax) 0.4 Mg Cap, 0.4 MG PO DAILY Prescribed by: PORTILLO CROFT on 09/15/22 0700 Review of Systems Review of Systems Constitutional: no symptoms reported Respiratory: No Symptoms Reported Cardiovascular: No Symptoms Reported Gastrointestinal: See HPI, Abdominal Pain; Denies Constipated, Denies Diarrhea; Nausea; Denies Vomiting Genitourinary: See HPI, Flank Pain Musculoskeletal: see HPI, back pain Skin: no symptoms reported; No rash Psychiatric/Neurological: No Symptoms Reported Endocrine: No Symptoms Reported Hematologic/Lymphatic: No Symptoms Reported (PORTILLO CROFT DO) Past Dkkonjr-Cqrhac-Rutiet Hx Patient Social History Tobacco Use?: No Smoking Status: Never a Smoker Smokeless Tobacco Frequency: Never a User Substance use?: No Alcohol Use?: Yes Alcohol Frequency: Once in a while (PORTILLO CROFT DO) Immunizations Up To Date Tetanus Booster (TDap): Less than 5yrs PED Vaccines UTD: No (PORTILLO CROFT DO) Past Medical History Surgeries: Yes Bladder Surgery, Hysterectomy, Oophorectomy, Rectal Respiratory: No Cardiac: Yes (LBBB; CHF) Cardiomyopathy, High Cholesterol, Hypertension Neurological: No Reproductive Disorders: Yes 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 Genitourinary: No Gastrointestinal: No Musculoskeletal: Yes Fibromyalgia, Scoliosis, Chronic Back Pain Endocrine: Yes Diabetes, Insulin dep Loss of Vision: Denies Hearing Impairment: Denies Cancer: No Psychosocial: Yes Depression Integumentary: No Blood Disorders: No Adverse Reaction/Blood Tranf: No (OCTAVIO,PORTILLO K DO) Family Medical History Cancer 03 FATHER Chest pain 03 FATHER Family history: Arthritis 03 FATHER Family history: Cardiovascular disease 03 FATHER Family history: Diabetes mellitus 03 MOTHER Family history: Hypertension 03 FATHER 03 MOTHER Family history: Thyroid disorder 03 MOTHER Headache 09 SISTER Heart disease 03 FATHER History of - respiratory disease 03 FATHER Hypercholesterolemia 03 FATHER Malignant neoplasm of lung 03 FATHER Myocardial infarction 03 FATHER No Family History of: Abdominal aortic aneurysm [place]'s disease Alcoholism Aphasia Cancer of colon Cataract Congenital heart disease Congestive heart failure Cystic fibrosis Dementia Dysphagia Family history: Allergy Family history: Alzheimer's disease Family history: Asthma Family history: Breast disease Family history: Coronary thrombosis Family history: Gastrointestinal disease Family history: Glaucoma Family history: Osteoporosis Hearing loss Hereditary disease History of - anemia History of - disorder History of drug abuse Human immunodeficiency virus (HIV) seropositivity Infertile Kidney disease Parkinson's disease Prostate cancer Psychotic disorder Seizure disorder Stroke Tuberculosis Visual impairment Physical Exam Vital Signs Vital Signs - First Documented 09/15/22 04:02 Temp 36.4 Pulse 70 Resp 22 B/P (MAP) 169/113 (131) Pulse Ox 99 O2 Delivery Room Air (MCKENNA PANIAGUA MD) Vital Signs Capillary Refill : (PORTILLO CROFT DO) Height/Weight/BMI Height: 5'10.00" Weight: 229lbs. oz. 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, no motor/sensory deficits, alert, normal mood/affect, oriented x 3 Skin: normal color, warm/dry; No rash (CATHIE CROFTA Yo DO) Progress/Results/Core Measures Results/Orders Lab Results Laboratory Tests Test 09/15/22 04:03 09/15/22 04:30 Range/Units Urine Color YELLOW Urine Clarity CLEAR Urine pH 7.0 5-9 Urine Specific [place] 1.020 1.016-1.022 Urine Protein NEGATIVE NEGATIVE Urine Glucose (UA) 3+ H NEGATIVE Urine Ketones NEGATIVE NEGATIVE Urine Nitrite NEGATIVE NEGATIVE Urine Bilirubin NEGATIVE NEGATIVE Urine Urobilinogen 0.2 < = 1.0 MG/DL Urine Leukocyte Esterase NEGATIVE NEGATIVE Urine RBC (Auto) 3+ H NEGATIVE Urine RBC 10-25 H /HPF Urine WBC NONE /HPF Urine Crystals NONE /LPF Urine Bacteria NEGATIVE /HPF Urine Casts NONE /LPF Urine Mucus NEGATIVE /LPF Urine Culture Indicated NO White Blood Count 11.5 H 4.3-11.0 10^3/uL Red Blood Count 4.50 3.80-5.11 10^6/uL Hemoglobin 13.7 11.5-16.0 g/dL Hematocrit 42 35-52 % Mean Corpuscular Volume 93 80-99 fL Mean Corpuscular Hemoglobin 30 25-34 pg Mean Corpuscular Hemoglobin Concent 33 32-36 g/dL Red Cell Distribution Width 12.7 10.0-14.5 % Platelet Count 384 130-400 10^3/uL Mean Platelet Volume 9.0 9.0-12.2 fL Immature Granulocyte % (Auto) 0 % Neutrophils (%) (Auto) 81 H 42-75 % Lymphocytes (%) (Auto) 11 L 12-44 % Monocytes (%) (Auto) 5 0-12 % Eosinophils (%) (Auto) 2 0-10 % Basophils (%) (Auto) 1 0-10 % Neutrophils # (Auto) 9.4 H 1.8-7.8 10^3/uL Lymphocytes # (Auto) 1.3 1.0-4.0 10^3/uL Monocytes # (Auto) 0.6 0.0-1.0 10^3/uL Eosinophils # (Auto) 0.2 0.0-0.3 10^3/uL Basophils # (Auto) 0.1 0.0-0.1 10^3/uL Immature Granulocyte # (Auto) 0.0 0.0-0.1 10^3/uL Sodium Level 140 135-145 MMOL/L Potassium Level 4.5 3.6-5.0 MMOL/L Chloride Level 105 98-107 MMOL/L Carbon Dioxide Level 23 21-32 MMOL/L Anion Gap 12 5-14 MMOL/L Blood Urea Nitrogen 21 H 7-18 MG/DL Creatinine 1.16 0.60-1.30 MG/DL Estimat Glomerular Filtration Rate 57 BUN/Creatinine Ratio 18 Glucose Level 291 H 70-105 MG/DL Calcium Level 9.7 8.5-10.1 MG/DL Corrected Calcium 9.3 8.5-10.1 MG/DL Total Bilirubin 0.4 0.1-1.0 MG/DL Aspartate Amino Transf (AST/SGOT) 18 5-34 U/L Alanine Aminotransferase (ALT/SGPT) 19 0-55 U/L Alkaline Phosphatase 32 L 40-136 U/L Total Protein 7.7 6.4-8.2 GM/DL Albumin 4.5 3.2-4.5 GM/DL Serum Test, Qualitative NEGATIVE NEGATIVE (MCKENNA PANIAGUA MD) Medications Given in ED (MCKENNA PANIAGUA MD) Vital Signs/I&O 09/15/22 09/15/22 04:02 07:20 Temp 36.4 Pulse 70 69 Resp 22 18 B/P (MAP) 169/113 (131) 162/99 Pulse Ox 99 100 O2 Delivery Room Air Room Air (MCKENNA PANIAGUA MD) Progress Progress Note : Progress Note GIVEN : -IV FLUIDS -TORADOL -ZOFRAN SYMPTOMS MUCH IMPROVED (PORTILLO CROFT DO) Progress Note : Time: 17:25 Progress Note 09/15/22 1725 Notified by the [facility] pharmacy here in [place] that Dr. Croft's SARAH BETH was her [place] SARAH BETH not her [place] SARAH BETH therefore they needed hydrocodone represcribed under a [place] SARAH BETH. This has been done. I sent hydrocodone 5/325 #20 to the [facility] pharmacy. (MCKENNA PANIAGUA MD) Diagnostic Imaging Comments KUB--PER RADIOLOGIST REPORT AT 0643 FINDINGS: There are no focal calcifications overlying the expected regions/ pathways of both kidneys, ureters, and bladder regions. There is a nonobstructed bowel gas pattern. There is no evidence of abdominal free air. There is a moderate amount of stool in the rectum region. There is mild left curvature of the lumbar spine. IMPRESSION: There is no radiographic evidence for acute abdominal/ pelvic process or urinary tract stones. There is a moderate amount of stool in the rectum region. CT ABDOMEN/PELVIS--PER RADIOLOGIST REPORT AT 0657 COMPARISON: None. FINDINGS: A 0.6 cm renal stone in the right ureterovesicular junction resulting in [id number] right hydronephrosis and mild perinephric stranding. No other renal stones. Normal left ureter. The lung bases are clear. The liver, gallbladder, pancreas, spleen, adrenals, bladder and appendix are negative. Hysterectomy. No free intraperitoneal air or fluid. No lymphadenopathy. No evidence of bowel obstruction. Moderate spondylotic changes at L5-S1. Chronic appearing S5 fracture. No acute osseous findings. IMPRESSION: A 0.6 cm obstructing renal stone in the right ureteral vesicular junction resulting in [id number] right hydronephrosis. Reviewed: Reviewed by Me (PORTILLO CROFT DO) Departure Impression Primary Impression: Right distal ureteral calculus Additional Impressions: Diabetes mellitus, insulin dependent (IDDM), uncontrolled HTN (hypertension) Disposition: HOME, SELF-CARE Condition: Improved Departure-Patient Inst. Decision time for Depature: 06:57 (PORTILLO CROFT DO) Referrals: TERRI REA DO (PCP) Primary Care Physician NOEMÍ REA DNP (Family) Primary Care Physician Patient Instructions: Carb Counting for Adults With Diabetes, High Blood Pressure ED, How to Strain Your Urine, Kidney Stones (DC) Add. Discharge Instructions: HOME, REST LOTS OF FLUIDS STRAIN ALL URINE--RETURN ANY STONES TO UROLOGIST OFFICE. FOLLOW UP WITH UROLOGIST OF CHOICE--YOU MAY CALL [facility] OR [facility] IN [place] FOR A LIST OF UROLOGISTS. CALL ON FRIDAY TO SCHEDULE AN APPOINTMENT RETURN TO ER IF YOUR SYMPTOMS WORSEN All discharge instructions reviewed with patient and/or family. Voiced understanding. Scripts Hydrocodone/Acetaminophen (Hydrocodone-Acetamin 5-325 mg) 5 Mg-325 Mg Tablet 1 TAB PO Q6H PRN for PAIN-MODERATE (5-7), #20 TAB Prov: MCKENNA PANIAGUA MD 09/15/22 Hydrocodone/Acetaminophen (Hydrocodone-Acetamin 5-325 mg) 5 Mg-325 Mg Tablet 1 EACH PO Q4-6 HOURS PRN for PAIN, #20 TAB Prov: PORTILLO CROFT DO 09/15/22 Ketorolac Tromethamine (Ketorolac Tromethamine) 10 Mg Tablet 10 MG PO Q6H for Pain, #15 TAB Prov: PORTILLO CROFT DO 09/15/22 Ondansetron (Ondansetron Odt) 4 Mg Tab.rapdis 4 MG PO Q4H for Nausea/Vomiting, #10 TAB Prov: PORTILLO CROFT DO 09/15/22 Ciprofloxacin HCl (Ciprofloxacin HCl) 500 Mg Tablet 500 MG PO BID, #14 TAB Prov: PORTILLO CROFT DO 09/15/22 Tamsulosin HCl (Flomax) 0.4 Mg Cap 0.4 MG PO DAILY, #10 CAP Prov: PORTILLO CROFT DO 09/15/22 PORTILLO CROFT DO Sep 15, 2022 04:46 MCKENNA PANIAGUA MD Sep 15, 2022 17:26
[2022-09-15 04:47] LABS: BILIRUBIN,URINE NEGATIVE (NEGATIVE); CLARITY,URINE CLEAR; COLOR,URINE YELLOW; GLUCOSE, URINE (UA) 3+ (NEGATIVE); KETONES,URINE NEGATIVE (NEGATIVE); LEUKOCYTE ESTERASE ,URINE NEGATIVE (NEGATIVE); NITRITE,URINE NEGATIVE (NEGATIVE); PROTEIN,URINE NEGATIVE (NEGATIVE)
[2022-09-15 04:48] LABS: BACTERIA,URINE NEGATIVE /HPF
[2022-09-15 04:58] LABS: ALBUMIN 4.5 GM/DL (3.2-4.5)
[2022-09-15 04:59] LABS: POTASSIUM 4.5 MMOL/L (3.6-5.0)
[2022-09-15 05:00] LABS: CALCIUM 9.7 MG/DL (8.5-10.1)
[2022-09-15 05:01] LABS: TOTAL PROTEIN 7.7 GM/DL (6.4-8.2)
[2022-09-15 05:03] LABS: BILIRUBIN,TOTAL 0.4 MG/DL (0.1-1.0)
[2022-09-15 05:05] LABS: CREATININE SERUM 1.16 MG/DL (0.60-1.30)
[2022-09-15] MEDS ORDERED: NS IV 1000 ML 1,000 ML IV SCH (05:15)
--- NOTE | 2022-09-15 06:39 | Diagnostic Imaging Report ---
CLINICAL INDICATION: Patient with abdominal pain. EXAM: KUB x-ray. COMPARISON: None. FINDINGS: There are no focal calcifications overlying the expected regions/ pathways of both kidneys, ureters, and bladder regions. There is a nonobstructed bowel gas pattern. There is no evidence of abdominal free air. There is a moderate amount of stool in the rectum region. There is mild left curvature of the lumbar spine. IMPRESSION: There is no radiographic evidence for acute abdominal/ pelvic process or urinary tract stones. There is a moderate amount of stool in the rectum region. Dictated by: Dictated on workstation # [id number]
--- NOTE | 2022-09-15 06:48 | Diagnostic Imaging Report ---
PROCEDURE: CT urinary tract, rule out kidney stone. TECHNIQUE: Multiple contiguous axial images were obtained through the abdomen and pelvis without the use of intravenous contrast. Auto Exposure Controls were utilized during the CT exam to meet ALARA standards for radiation dose reduction. INDICATION: Flank pain. Suspected kidney stone. COMPARISON: None. FINDINGS: A 0.6 cm renal stone in the right ureterovesicular junction resulting in [id number] right hydronephrosis and mild perinephric stranding. No other renal stones. Normal left ureter. The lung bases are clear. The liver, gallbladder, pancreas, spleen, adrenals, bladder and appendix are negative. Hysterectomy. No free intraperitoneal air or fluid. No lymphadenopathy. No evidence of bowel obstruction. Moderate spondylotic changes at L5-S1. Chronic appearing S5 fracture. No acute osseous findings. IMPRESSION: A 0.6 cm obstructing renal stone in the right ureteral vesicular junction resulting in [id number] right hydronephrosis. Dictated by: Dictated on workstation # [id number]
[2022-09-15] MEDS ORDERED: KETO10TA PO (07:00)
[2022-09-15] MEDS ORDERED: TMSL.4C PO (07:00)
[2022-09-15] MEDS ORDERED: ACHD5005 PO ×2 (07:00→17:25)
[2022-09-15] MEDS ORDERED: CIPR500T5 PO (07:00)
[2022-09-15] MEDS ORDERED: ONDA4TAB11 PO (07:00)
[2022-09-15] MEDS ORDERED: RX-ONDANSETRON 4 MG ODT (ZOFRAN) PPK #4 PO STA (07:01)
[2022-09-15] MEDS ORDERED: TAMSULOSIN 0.4 MG (FLOMAX) CAP PO SCH (07:15)
[2022-09-15] MEDS ORDERED: CIPROFLOXACIN 500 MG (CIPRO) TABLET PO SCH (07:15)
[2022-09-15 07:20] VITALS: BP 162/99
== END 2022-09-15 07:20 | disposition home or self-care (01) ==
LOC: EDUNIT# 03:51 → ER 03:54
DX: N13.2 Hydronephrosis with renal and ureteral calculous obstruction (principal); I10 Essential (primary) hypertension; E11.9 Type 2 diabetes mellitus without complications; Z91.040 Latex allergy status; Z79.4 Long term (current) use of insulin
CPT/HCPCS: 36415; 74018; 74176; 80053; 81000; 84703; 85025; 99282